=== PATIENT | female | born 1980 | race African-American/Black ===

== ENCOUNTER 2018-10-09 15:44 | Observation (INO) | payer OTHER ==
[~2018-10-09] VITALS: Ht 157.5 cm; Wt 91.6 kg
--- OUTSIDE RECORDS SUMMARY | 2018-10-09 15:47 | XMS REPORT ---
Author Author [facility] Address Unknown Phone Unavailable Care Team Providers Care Taffy Puller Name Role Phone Unavailable Unavailable Payers Payer Name Policy Type Policy Number Effective Date Expiration Date Problems This patient has no known problems. Allergies, Adverse Reactions, Alerts Allergy Name Allergy Type Status Severity Reaction(s) Onset Date Inactive Date Treating Clinician Comments codeine DA Active PR 2018-08-28 00:00:00 codeine DA Active U 2018-07-10 00:00:00 piperacillin DA Active MO 2018-07-10 00:00:00 codeine DA Active U 2018-06-26 00:00:00 piperacillin DA Active MO 2018-06-26 00:00:00 codeine DA Active U 2018-05-26 00:00:00 piperacillin DA Active MO 2018-05-26 00:00:00 codeine DA Active U 2018-05-14 00:00:00 piperacillin DA Active MO 2018-05-14 00:00:00 codeine DA Active U 2017-11-01 00:00:00 tazobactam DA Active MO 2017-11-01 00:00:00 piperacillin DA Active MO 2017-11-01 00:00:00 codeine DA Active U 2017-06-13 00:00:00 tazobactam DA Active MO 2017-06-13 00:00:00 piperacillin DA Active MO 2017-06-13 00:00:00 Medications This patient has no known medications. Results Test Description Test Time Test Comments Text Results Atomic Results Result Comments - CT HEAD/BRAIN W/O CONT 2018-08-31 12:45:00 Name: MELVA TOUSSAINT [facility] : 1980 Age/S: 37 / F [address] Unit #: [id number] Loc: [place] [address] Phys: Alan Curiel MD Acct: [id number] Dis Date: Status: REG ER PHONE #: [phone] Exam Date: 08/31/2018 1215 FAX #: [phone] Reason: headache EXAMS: CPT CODE: [id number] CT HEAD/BRAIN W/O CONT 54707 HISTORY: headache TECHNIQUE: Noncontrast 2.[address] of the head. Examination acquired within 24 hours of arrival. Automated exposure control for dose reduction. COMPARISON: Noncontrast CT brain June 22, 2016 FINDINGS: No acute hemorrhage. No intracranial mass, mass effect, or midline shift. No CT evidence of acute infarct. Maria-white matter differentiation is preserved. No hydrocephalus. No extra-axial fluid collection. Visualized paranasal sinuses are clear. Mastoid air cells and middle ear cavities are clear. Orbital contents are unremarkable. Calvarium and skull base are intact. IMPRESSION: Negative CT head. at 1245 Reported and signed by: Hadley amador MD CC: Paddy San MD; Alan Curiel MD Technologist:Sydney Baxter RT(R),CT CTDI: DLP: Trnscb Date/Time: 08/31/2018 (0071) [email or web address] Orig Print D/T: S: 08/31/2018 (4782) PAGE 1 Signed Report BASIC METABOLIC PANEL 2018-08-31 11:58:00 SODIUM (test code=NA) 139 mmol/L 136-145 POTASSIUM (test code=K) 3.7 mmol/L 3.5-5.1 CHLORIDE (test code=CL) 107.0 mmol/L 98-107 CARBON DIOXIDE (test code=CO2) 27.0 mmol/L 21-32 ANION GAP (test code=GAP) 8.7 10-20 GLUCOSE (test code=GLU) 92 mg/dL 74-106 BLOOD UREA NITROGEN (test code=BUN) 8 mg/dL 7-18 GLOMERULAR FILTRATION RATE (test code=GFR) > 60 mL/min >=60 Estimated GFR by using Modified MDRD formula.Chronic kidney disease is defined as either kidney damageor GFR <60 mL/min/1.73 m2 for >3 months. CREATININE (test code=CREAT) 0.70 mg/dL 0.55-1.02 Note change in reference range due to change in reagent. BUN/CREATININE RATIO (test code=BUN/CREA) 11.4 10-20 CALCIUM (test code=CA) 8.7 mg/dL 8.5-10.1 HCG SERUM [id number] 11:58:00* Test Item Value Reference Range Comments HCG SERUM QUAL (test code=HCGQL) NEGATIVE NEGATIVE This HCGQL test is NOT applicable for MALE patients.Check with nurse about probable order error.If Tumor Marker Test needed, nurse should order test "HCGTU"(Test #550.21369) [id number] 11:58:00* Test Item Value Reference Range Comments TROPONIN-I (test code=TROPI) <0.015 ng/mL 0-0.045 - XR CHEST 1 [id number] 11:56:00 FAX: Paddy Persaud MD [phone] [place]: St: REG FAX: Alan Curiel MD Name: MELVA TOUSSAINT [facility] : 1980 Age/S: 37/F [address] Unit #: [id number] Loc: [facility] [facility] [place] [address] Phys: Alan Curiel MD Acct: [id number] Dis Date: Status: REG ER PHONE #: [phone] Exam Date: 08/31/2018 1118 FAX #: [phone] Reason: CHEST PAIN EXAMS: CPT CODE: [id number] XR CHEST 1 V 73323 REASON FOR EXAM: CHEST PAIN Exam Order Date: 08/31/2018 10:32 AM Ordering MBryn: Alan Curiel MD PROCEDURE: - XR CHEST 1 V COMPARISON: AP chest x-ray August 28, 2018. FINDINGS: The lungs are clear. There is no pleural effusion or pneumothorax. Pulmonary vascularity is within normal limits. Cardiomediastinal silhouette is normal in size for technique. The mediastinal contours are within normal limits. Musculoskeletal structures are within normal limits. The visualized upper abdomen is within normal limits. IMPRESSION: No acute cardiopulm onary process. at 1156 Reported and signed by: Hadley Velasquez MD CC: Paddy San MD; Alan Curiel MD Technologist: Rey Ramírez RT(R) Trnscrd Date/Time/By: (5926) : By: [email or web address] Orig Print D/T: S: 08/31/2018 (4869) PAGE 1 Signed Report BASIC METABOLIC [id number] 11:49:00* Test Item Value Reference Range Comments SODIUM (test code=NA) 139 mmol/L 136-145 POTASSIUM (test code=K) 3.7 mmol/L 3.5-5.1 CHLORIDE (test code=CL) 107.0 mmol/L 98-107 CARBON DIOXIDE (test code=CO2) 27.0 mmol/L 21-32 ANION GAP (test code=GAP) 8.7 10-20 GLUCOSE (test code=GLU) 92 mg/dL 74-106 BLOOD UREA NITROGEN (test code=BUN) 8 mg/dL 7-18 GLOMERULAR FILTRATION RATE (test code=GFR) > 60 mL/min >=60 Estimated GFR by using Modified MDRD formula.Chronic kidney disease is defined as either kidney damageor GFR <60 mL/min/1.73 m2 for >3 months. CREATININE (test code=CREAT) 0.70 mg/dL 0.55-1.02 Note change in reference range due to change in reagent. BUN/CREATININE RATIO (test code=BUN/CREA) 11.4 10-20 CALCIUM (test code=CA) 8.7 mg/dL 8.5-10.1 HCG SERUM [id number] 11:49:00* Test Item Value Reference Range Comments HCG SERUM QUAL (test code=HCGQL) NEGATIVE [id number] 11:49:00* Test Item Value Reference Range Comments TROPONIN-I (test code=TROPI) <0.015 ng/mL 0-0.045 BASIC METABOLIC [id number] 11:37:00* Test Item Value Reference Range Comments SODIUM (test code=NA) 139 mmol/L 136-145 POTASSIUM (test code=K) 3.7 mmol/L 3.5-5.1 CHLORIDE (test code=CL) 107.0 mmol/L 98-107 CARBON DIOXIDE (test code=CO2) mmol/L 21-32 ANION GAP (test code=GAP) 10-20 GLUCOSE (test code=GLU) mg/dL 74-106 BLOOD UREA NITROGEN (test code=BUN) mg/dL 7-18 GLOMERULAR FILTRATION RATE (test code=GFR) mL/min >=60 CREATININE (test code=CREAT) mg/dL 0.55-1.02 BUN/CREATININE RATIO (test code=BUN/CREA) 10-20 CALCIUM (test code=CA) mg/dL 8.5-10.1 HCG SERUM [id number] 11:37:00* Test Item Value Reference Range Comments HCG SERUM QUAL (test code=HCGQL) NEGATIVE [id number] 11:37:00* Test Item Value Reference Range Comments TROPONIN-I (test code=TROPI) ng/mL 0-0.045 TROPONIN I [id number] 11:33:00* Test Item Value Reference Range Comments TROPONIN I RAPID (test code=TROPIRAP) 0.00 ng/mL <0.08 Please Note New Reference Range 0.00-0.079 ng/mL - Negative>or=0.08 ng/mL - Positive The use of serial sampling and testing protocol is arecommended practice.An elevated troponin level alone is often not sufficient fordiagnosis of myocardial infarction. Troponin results obtained by different assays may vary.Evaluation of the extent of myocardial damage based onincrease of troponin would be valid only if similarmethodology is used. CBC W/O [id number] 11:26:00* Test Item Value Reference Range Comments WHITE BLOOD CELL (test code=WBC) 5.0 K/mm3 4.5-12.5 RED BLOOD CELL (test code=RBC) 3.94 mill/mm3 3.7-5.2 HEMOGLOBIN (test code=HGB) 11.6 gram/dL 11.5-15.5 HEMATOCRIT (test code=HCT) 37.3 % 36.0-46.0 MEAN CELL VOLUME (test code=MCV) 94.7 fL 80-98 MEAN CELL HGB (test code=MCH) 29.4 picogram 27.0-33.0 MEAN CELL HGB CONCETRATION (test code=MCHC) 31.1 gram/dL 33.0-36.0 RED CELL DISTRIBUTION WIDTH (test code=RDW) 12.2 % 11.6-16.2 PLATELET COUNT (test code=PLT) 260 K/mm3 150-450 MEAN PLATELET VOLUME (test code=MPV) 9.3 fL 6.7-11.0 CBC W/O [id number] 11:25:00* Test Item Value Reference Range Comments WHITE BLOOD CELL (test code=WBC) K/mm3 4.5-12.5 RED BLOOD CELL (test code=RBC) mill/mm3 3.7-5.2 HEMOGLOBIN (test code=HGB) 11.6 gram/dL 11.5-15.5 HEMATOCRIT (test code=HCT) 37.3 % 36.0-46.0 MEAN CELL VOLUME (test code=MCV) fL 80-98 MEAN CELL HGB (test code=MCH) picogram 27.0-33.0 MEAN CELL HGB CONCETRATION (test code=MCHC) gram/dL 33.0-36.0 RED CELL DISTRIBUTION WIDTH (test code=RDW) % 11.6-16.2 PLATELET COUNT (test code=PLT) K/mm3 150-450 MEAN PLATELET VOLUME (test code=MPV) fL 6.7-11.0 VITAMIN [id number] 15:17:00* Test Item Value Reference Range Comments VITAMIN B12 (test code=VITB12) 216 pg/mL 193-986 FOLIC [id number] 15:17:00* Test Item Value Reference Range Comments FOLIC ACID (test code=FOL) 12.2 ng/mL 3.10-17.50 THYROID PROFILE [id number] 15:15:00* Test Item Value Reference Range Comments T3 UPTAKE (test code=T3UP) 34.0 % 30.0-40.0 T4 (THYROXINE) (test code=T4) 6.1 ug/dL 4.5-13.9 T7 (FREE THYROXINE INDEX) (test code=T7) 2.07 FTI 1.3-5.1 THYROID STIMULATING HORMONE (test code=TSH) 1.770 uIU/mL 0.36-3.74 TSH REFERENCE RANGES: EUTHYROID: 0.35 - 4.3 mIU/mL HYPO : > 5.5 mIU/mL HYPER : < 0.35 mIU/mL [id number] 11:35:00* Test Item Value Reference Range Comments TROPONIN-I (test code=TROPI) <0.015 ng/mL 0-0.045 COMMENTS TO CABLE PLACER: COLLECT 3 HOURS AFTER PREVIOUS SAMPLELIPID PROFILE (CORONARY RISK)2018-08-28 11:26:00* Test Item Value Reference Range Comments TRIGLYCERIDES (test code=TRIG) 75 mg/dL 20-150 CHOLESTEROL (test code=CHOL) 183 mg/dL 0-200 CHOLESTEROL/HDL RATIO (test code=CHOLHDL) 3.0 RATIO 0-4.9 RISK ASSOCIATED WITH CHOL/HDL RATIOS: Risk Male Female1/2 AVERAGE 3.43 3.27AVERAGE 4.97 4.442X AVERAGE 9.55 7.053X AVERAGE 23.39 11.04 REFERENCE VALUE IS RELATED TO RISK LEVELS ASRECOMMENDED BY THE MADDY. HEART, LUNG, AND BLOOD INST. HDL CHOLESTEROL (test code=HDL) 53 mg/dL 40-60 LIPOPROTEIN LDL (test code=LDL) 115 mg/dL 100-129 RN PERSONNEL, CONTACT PHYSICIAN IMMEDIATELY IF THIS IS A STROKE, AMI OR CAROTID STENOSIS PATIENT WHEN THE LDL >100 (1ST OCCURENCE, THIS ADMISSION) Reference Interval: mg/dL mmol/L Optimal <100 <2.6Near/above optimal 100-129 2.6- 3.3Borderline High 130-159 3.4-4.1High 160-189 4.1-4.9Very High >=190 >=4.9=========This LDL result is a direct measurement.========= DRUGS OF ABUSE SCREEN [id number] 10:40:00* Test Item Value Reference Range Comments UA PH DIPSTICK (test code=ZACH) 5.0 5.0-8.0 URN COCAINE (test code=COCAURN) NEGATIVE <300 ng/mL URN CANNABINOIDS (test code=CANNABURN) NEGATIVE <50 ng/mL URN AMPHETAMINE (test code=AMPHETURN) NEGATIVE <1000 ng/mL URN BARBITURATE (test code=BARBITURN) NEGATIVE <200 ng/mL URN BENZODIAZEPINE (test code=BENZOURN) NEGATIVE <200 ng/mL URN OPIATES (test code=OPIATURN) POSITIVE <300 ng/mL This test provides only a preliminary test result. A morespecific alternate chemical method must be used in order toobtain a confirmed analytical result. Gas chromatography/mass spectrometry (GC/MS) is thepreferred confirmatory method. Other chemical confirmationmethods are available. Clinical consideration and professional judgment should be applied to any drug of abusetest result, particularly when preliminary positive resultsare used.Unconfirmed screening results must not be used fornon-medical purposes (e.g., employment testing, legaltesting). URN PHENCYCLIDINE (PCP) (test code=PHENCURN) NEGATIVE <25 ng/mL URN METHADONE (test code=METHAURN) NEGATIVE <300 ng/mL [id number] 09:26:00* Test Item Value Reference Range Comments TROPONIN-I (test code=TROPI) <0.015 ng/mL 0-0.045 COMMENTS TO CABLE PLACER: COLLECT 3 HOURS AFTER PREVIOUS SAMPLEDRUGS OF ABUSE SCREEN [id number] 09:12:00* Test Item Value Reference Range Comments UA PH DIPSTICK (test code=ZACH) 5.0-8.0 URN COCAINE (test code=COCAURN) NEGATIVE <300 ng/mL URN CANNABINOIDS (test code=CANNABURN) NEGATIVE <50 ng/mL URN AMPHETAMINE (test code=AMPHETURN) NEGATIVE <1000 ng/mL URN BARBITURATE (test code=BARBITURN) NEGATIVE <200 ng/mL URN BENZODIAZEPINE (test code=BENZOURN) NEGATIVE <200 ng/mL URN OPIATES (test code=OPIATURN) POSITIVE <300 ng/mL This test provides only a preliminary test result. A morespecific alternate chemical method must be used in order toobtain a confirmed analytical result. Gas chromatography/mass spectrometry (GC/MS) is thepreferred confirmatory method. Other chemical confirmationmethods are available. Clinical consideration and professional judgment should be applied to any drug of abusetest result, particularly when preliminary positive resultsare used.Unconfirmed screening results must not be used fornon-medical purposes (e.g., employment testing, legaltesting). URN PHENCYCLIDINE (PCP) (test code=PHENCURN) NEGATIVE <25 ng/mL URN METHADONE (test code=METHAURN) NEGATIVE <300 ng/mL - XR CHEST 1 [id number] 04:56:00 FAX: Paddy Persaud MD [phone] [place]: St: [facility] FAX: Whitley Diaz DO Name: MELVA TOUSSAINT [facility] : 1980 Age/S: 37/F [address] [facility] Unit #: [id number] Loc: [place] [address] Phys: Whitley Diaz DO Acct: [id number] Dis Date: Status: REG ER PHONE #: [phone] Exam Date: 08/28/2018 0427 FAX #: [phone] Reason: CHEST PAIN EXAMS: CPT CODE: [id number] XR CHEST 1 V 25586 EXAM: - XR CHEST 1 V HISTORY: Chest pain. COMPARISON: July 10, 2018. FINDINGS: Single AP view of the chest is provided. Heart size and vascularity are within normal limits. The lungs are clear of focal consolidation. No effusion, pneumothorax, or acute osseous abnormality. IMPRESSION: No radiographic evidence of acute cardiopulmonary process. at 0456 Reported and signed by: Jr Lucia MD CC: Paddy Richardson MD; Whitley Diaz DO Technologist: Jennie Cedeño Trnscrd Date/Time/By: 08/28/2018 (0456) : By: [email or web address] Orig Print D/T: S: 08/28/2018 (0459) PAGE 1 Signed Report BASIC METABOLIC [id number] 04:47:00* Test Item Value Reference Range Comments SODIUM (test code=NA) 139 mmol/L 136-145 POTASSIUM (test code=K) 3.5 mmol/L 3.5-5.1 CHLORIDE (test code=CL) 107.5 mmol/L 98-107 CARBON DIOXIDE (test code=CO2) 24.0 mmol/L 21-32 ANION GAP (test code=GAP) 11.0 10-20 GLUCOSE (test code=GLU) 90 mg/dL 74-106 BLOOD UREA NITROGEN (test code=BUN) 9 mg/dL 7-18 GLOMERULAR FILTRATION RATE (test code=GFR) > 60 mL/min >=60 Estimated GFR by using Modified MDRD formula.Chronic kidney disease is defined as either kidney damageor GFR <60 mL/min/1.73 m2 for >3 months. CREATININE (test code=CREAT) 0.64 mg/dL 0.55-1.02 Note change in reference range due to change in reagent. BUN/CREATININE RATIO (test code=BUN/CREA) 14.1 10-20 CALCIUM (test code=CA) 8.4 mg/dL 8.5-10.1 [id number] 04:47:00* Test Item Value Reference Range Comments TROPONIN-I (test code=TROPI) <0.015 ng/mL 0-0.045 CBC W/O [id number] 04:24:00* Test Item Value Reference Range Comments WHITE BLOOD CELL (test code=WBC) 5.8 K/mm3 4.5-12.5 RED BLOOD CELL (test code=RBC) 3.89 mill/mm3 3.7-5.2 HEMOGLOBIN (test code=HGB) 11.4 gram/dL 11.5-15.5 HEMATOCRIT (test code=HCT) 37.0 % 36.0-46.0 MEAN CELL VOLUME (test code=MCV) 95.1 fL 80-98 MEAN CELL HGB (test code=MCH) 29.3 picogram 27.0-33.0 MEAN CELL HGB CONCETRATION (test code=MCHC) 30.8 gram/dL 33.0-36.0 RED CELL DISTRIBUTION WIDTH (test code=RDW) 12.5 % 11.6-16.2 PLATELET COUNT (test code=PLT) 261 K/mm3 150-450 MEAN PLATELET VOLUME (test code=MPV) 9.4 fL 6.7-11.0 CBC W/O [id number] 04:23:00* Test Item Value Reference Range Comments WHITE BLOOD CELL (test code=WBC) K/mm3 4.5-12.5 RED BLOOD CELL (test code=RBC) mill/mm3 3.7-5.2 HEMOGLOBIN (test code=HGB) gram/dL 11.5-15.5 HEMATOCRIT (test code=HCT) 37.0 % 36.0-46.0 MEAN CELL VOLUME (test code=MCV) fL 80-98 MEAN CELL HGB (test code=MCH) picogram 27.0-33.0 MEAN CELL HGB CONCETRATION (test code=MCHC) gram/dL 33.0-36.0 RED CELL DISTRIBUTION WIDTH (test code=RDW) % 11.6-16.2 PLATELET COUNT (test code=PLT) K/mm3 150-450 MEAN PLATELET VOLUME (test code=MPV) fL 6.7-11.0 TROPONIN I [id number] 03:52:00* Test Item Value Reference Range Comments TROPONIN I RAPID (test code=TROPIRAP) 0.00 ng/mL <0.08 Please Note New Reference Range 0.00-0.079 ng/mL - Negative>or=0.08 ng/mL - Positive The use of serial sampling and testing protocol is arecommended practice.An elevated troponin level alone is often not sufficient fordiagnosis of myocardial infarction. Troponin results obtained by different assays may vary.Evaluation of the extent of myocardial damage based onincrease of troponin would be valid only if similarmethodology is used. [id number] 16:23:00* Test Item Value Reference Range Comments D-DIMER (test code=DDIMER) 252.00 ng/mLFEU 0-500 Clinical Cut-off value for D- Dimer is 500 ng/mL FEU. Comment: The [employer] D-Dimer assay is intended for use asan aid in the diagnosis of venous thromboembolism (VTE)[deep vein thrombosis (DVT) or pulmonary embolism (PE)].The measurement of D-Dimer should not be used as an aid inthe diagnosis of VTE, in patient with: -Therapeutic dose anticoagulant therapy for >24 hours -Fibrinolytic therapy within previous 7 days -Trauma or surgery within previous 4 weeks -Disseminated malignancies - Aortic aneurysm -Sepsis, severe infections, pneumonia, severe skin infections -Liver cirrhosis - BASIC METABOLIC [id number] 16:01:00* Test Item Value Reference Range Comments SODIUM (test code=NA) 137 mmol/L 136-145 POTASSIUM (test code=K) 4.0 mmol/L 3.5-5.1 CHLORIDE (test code=CL) 103.0 mmol/L 98-107 CARBON DIOXIDE (test code=CO2) 27.0 mmol/L 21-32 ANION GAP (test code=GAP) 11.0 10-20 GLUCOSE (test code=GLU) 88 mg/dL 74-106 BLOOD UREA NITROGEN (test code=BUN) 11 mg/dL 7-18 GLOMERULAR FILTRATION RATE (test code=GFR) > 60 mL/min >=60 Estimated GFR by using Modified MDRD formula.Chronic kidney disease is defined as either kidney damageor GFR <60 mL/min/1.73 m2 for >3 months. CREATININE (test code=CREAT) 0.80 mg/dL 0.55-1.02 Note change in reference range due to change in reagent. BUN/CREATININE RATIO (test code=BUN/CREA) 13.8 10-20 CALCIUM (test code=CA) 9.1 mg/dL 8.5-10.1 HCG SERUM [id number] 16:01:00* Test Item Value Reference Range Comments HCG SERUM QUAL (test code=HCGQL) NEGATIVE NEGATIVE This HCGQL test is NOT applicable for MALE patients.Check with nurse about probable order error.If Tumor Marker Test needed, nurse should order test "HCGTU"(Test #550.80929) [id number] 16:01:00* Test Item Value Reference Range Comments TROPONIN-I (test code=TROPI) <0.015 ng/mL 0-0.045 [id number] 15:48:00* Test Item Value Reference Range Comments MAGNESIUM (test code=MAG) 2.1 mg/dL 1.8-2.4 BASIC METABOLIC [id number] 15:39:00* Test Item Value Reference Range Comments SODIUM (test code=NA) 137 mmol/L 136-145 POTASSIUM (test code=K) 4.0 mmol/L 3.5-5.1 CHLORIDE (test code=CL) 103.0 mmol/L 98-107 CARBON DIOXIDE (test code=CO2) mmol/L 21-32 ANION GAP (test code=GAP) 10-20 GLUCOSE (test code=GLU) mg/dL 74-106 BLOOD UREA NITROGEN (test code=BUN) mg/dL 7-18 GLOMERULAR FILTRATION RATE (test code=GFR) mL/min >=60 CREATININE (test code=CREAT) mg/dL 0.55-1.02 BUN/CREATININE RATIO (test code=BUN/CREA) 10-20 CALCIUM (test code=CA) mg/dL 8.5-10.1 HCG SERUM [id number] 15:39:00* Test Item Value Reference Range Comments HCG SERUM QUAL (test code=HCGQL) NEGATIVE NEGATIVE This HCGQL test is NOT applicable for MALE patients.Check with nurse about probable order error.If Tumor Marker Test needed, nurse should order test "HCGTU"(Test #550.42592) [id number] 15:39:00* Test Item Value Reference Range Comments TROPONIN-I (test code=TROPI) ng/mL 0-0.045 BASIC METABOLIC [id number] 15:38:00* Test Item Value Reference Range Comments SODIUM (test code=NA) mmol/L 136-145 POTASSIUM (test code=K) mmol/L 3.5-5.1 CHLORIDE (test code=CL) mmol/L 98-107 CARBON DIOXIDE (test code=CO2) mmol/L 21-32 ANION GAP (test code=GAP) 10-20 GLUCOSE (test code=GLU) mg/dL 74-106 BLOOD UREA NITROGEN (test code=BUN) mg/dL 7-18 GLOMERULAR FILTRATION RATE (test code=GFR) mL/min >=60 CREATININE (test code=CREAT) mg/dL 0.55-1.02 BUN/CREATININE RATIO (test code=BUN/CREA) 10-20 CALCIUM (test code=CA) mg/dL 8.5-10.1 HCG SERUM [id number] 15:38:00* Test Item Value Reference Range Comments HCG SERUM QUAL (test code=HCGQL) NEGATIVE NEGATIVE This HCGQL test is NOT applicable for MALE patients.Check with nurse about probable order error.If Tumor Marker Test needed, nurse should order test "HCGTU"(Test #550.89670) [id number] 15:38:00* Test Item Value Reference Range Comments TROPONIN-I (test code=TROPI) ng/mL 0-0.045 CBC W/O [id number] 15:08:00* Test Item Value Reference Range Comments WHITE BLOOD CELL (test code=WBC) 7.6 K/mm3 4.5-12.5 RED BLOOD CELL (test code=RBC) 4.56 mill/mm3 3.7-5.2 HEMOGLOBIN (test code=HGB) 13.2 gram/dL 11.5-15.5 HEMATOCRIT (test code=HCT) 42.8 % 36.0-46.0 MEAN CELL VOLUME (test code=MCV) 93.9 fL 80-98 MEAN CELL HGB (test code=MCH) 28.9 picogram 27.0-33.0 MEAN CELL HGB CONCETRATION (test code=MCHC) 30.8 gram/dL 33.0-36.0 RED CELL DISTRIBUTION WIDTH (test code=RDW) 13.1 % 11.6-16.2 PLATELET COUNT (test code=PLT) 327 K/mm3 150-450 MEAN PLATELET VOLUME (test code=MPV) 9.0 fL 6.7-11.0 - XR CHEST 1 [id number] 14:42:00 FAX: Paddy Persaud MD [phone] [place]: St: [facility] FAX: ALAN CURIEL MD Name: MELVA TOUSSAINT [facility] : 1980 Age/S: 37/F [address] [facility] Unit #: [id number] Loc: [place] [address] Phys: ALAN CURIEL MD Acct: [id number] Dis Date: Status: REG ER PHONE #: [phone] Exam Date: 07/10/2018 1431 FAX #: [phone] Reason: CHEST PAIN EXAMS: CPT CODE: [id number] XR CHEST 1 V [id number] TECHNIQUE - XR CHEST 1 V . COMPARISON: Chest x-ray 06/26/2018 HISTORY: 37 years Female CHEST PAIN FINDINGS: Lungs: Question 5 mm nodular density left upper lobe. Not well-seen on the old study of 06/26/2018. Lungs are normal in volume. Mediastinum and jose: No enlargement or other mass. Cardiovascular structures: No cardiomegaly. No abnormalities in vascular structures. Pleura/CP angles: Clear. No pneumothorax. Bones: No osseous abnormalities. Soft tissues: No abnormalities. Tubes and lines: None. Other: None. IMPRESSION: Question 5 mm nodular density left upper lobe. Not well-seen on the old study of 06/26/2018. El ectronically Signed by Tai Dey M.D. on 07/10/2018 at 1442 Reported and signed by: Tai Dey M.D. CC: Paddy San MD; ALAN CURIEL MD Technologist: Yisel Larsen RT(R); STUDENT TECHNO LOGIST Trnscrd Date/Time/By: 07/10/2018 (8271) : By: Ruddy Orig Print D/T: S: 07/10/2018 (5730) PAGE 1 Signed Report [id number] 18:54:00* Test Item Value Reference Range Comments D-DIMER (test code=DDIMER) 185.00 ng/mLFEU 0-500 Clinical Cut-off value for D- Dimer is 500 ng/mL FEU. Comment: The [employer] D-Dimer assay is intended for use asan aid in the diagnosis of venous thromboembolism (VTE)[deep vein thrombosis (DVT) or pulmonary embolism (PE)].The measurement of D-Dimer should not be used as an aid inthe diagnosis of VTE, in patient with: -Therapeutic dose anticoagulant therapy for >24 hours -Fibrinolytic therapy within previous 7 days -Trauma or surgery within previous 4 weeks -Disseminated malignancies - Aortic aneurysm -Sepsis, severe infections, pneumonia, severe skin infections -Liver cirrhosis - - XR CHEST 1 [id number] 18:53:00 FAX: Chance Rodríguez MD [phone] [place]: [facility]: [facility] FAX: Paddy Persaud MD [phone] Name: MELVA TOUSSAINT [facility] : 1980 Age/S: 37/F [place] Hernandez Unit #: [id number] Loc: [place] [address] Phys: Chance Rodríguez MD Acct: [id number] Dis Date: Status: REG ER PHONE #: [phone] Exam Date: 06/26/2018 1850 FAX #: [phone] Reason: CHEST PAIN EXAMS: CPT CODE: [id number] XR CHEST 1 V 21204 REASON FOR EXAM: CHEST PAIN EXAM ORDER DATE: 06/26/2018 5:48 PM Ordering M.Kelsey: Chance Rodríguez MD PROCEDURE: - XR CHEST 1 V COMPARISON: 06/10/2018 FINDINGS: Portable AP frontal view of the chest obtained at 6:50 PM shows clear lungs without evidence of consolidation. There is no evidence of effusion. The heart size is within normal limits. Pulmonary vasculatures are unremarkable. IMPRESSION: No active disease. at 1853 Reported and signed by: Bradley Bacon M.D. CC: Chance Rodríguez MD; Paddy San MD Technologist: EVERETT WYMAN; Darius Burks, RT(R Trnscrd Date/Time/By: 06/26/2018 (185) : By: [email or web address] Orig Print D/T: S: 06/26/2018 (1855) PAGE 1 Signed Report BASIC METABOLIC [id number] 18:47:00* Test Item Value Reference Range Comments SODIUM (test code=NA) 139 mmol/L 136-145 POTASSIUM (test code=K) 3.9 mmol/L 3.5-5.1 CHLORIDE (test code=CL) 103.0 mmol/L 98-107 CARBON DIOXIDE (test code=CO2) 27.0 mmol/L 21-32 ANION GAP (test code=GAP) 12.9 10-20 GLUCOSE (test code=GLU) 83 mg/dL 74-106 BLOOD UREA NITROGEN (test code=BUN) 8 mg/dL 7-18 GLOMERULAR FILTRATION RATE (test code=GFR) > 60 mL/min >=60 Estimated GFR by using Modified MDRD formula.Chronic kidney disease is defined as either kidney damageor GFR <60 mL/min/1.73 m2 for >3 months. CREATININE (test code=CREAT) 0.70 mg/dL 0.55-1.02 Note change in reference range due to change in reagent. BUN/CREATININE RATIO (test code=BUN/CREA) 11.4 10-20 CALCIUM (test code=CA) 9.2 mg/dL 8.5-10.1 HCG SERUM [id number] 18:47:00* Test Item Value Reference Range Comments HCG SERUM QUAL (test code=HCGQL) NEGATIVE NEGATIVE This HCGQL test is NOT applicable for MALE patients.Check with nurse about probable order error.If Tumor Marker Test needed, nurse should order test "HCGTU"(Test #550.89828) [id number] 18:47:00* Test Item Value Reference Range Comments TROPONIN-I (test code=TROPI) <0.015 ng/mL 0-0.045 BASIC METABOLIC [id number] 18:44:00* Test Item Value Reference Range Comments SODIUM (test code=NA) 139 mmol/L 136-145 POTASSIUM (test code=K) 3.9 mmol/L 3.5-5.1 CHLORIDE (test code=CL) 103.0 mmol/L 98-107 CARBON DIOXIDE (test code=CO2) 27.0 mmol/L 21-32 ANION GAP (test code=GAP) 12.9 10-20 GLUCOSE (test code=GLU) 83 mg/dL 74-106 BLOOD UREA NITROGEN (test code=BUN) 8 mg/dL 7-18 GLOMERULAR FILTRATION RATE (test code=GFR) > 60 mL/min >=60 Estimated GFR by using Modified MDRD formula.Chronic kidney disease is defined as either kidney damageor GFR <60 mL/min/1.73 m2 for >3 months. CREATININE (test code=CREAT) 0.70 mg/dL 0.55-1.02 Note change in reference range due to change in reagent. BUN/CREATININE RATIO (test code=BUN/CREA) 11.4 10-20 CALCIUM (test code=CA) 9.2 mg/dL 8.5-10.1 HCG SERUM [id number] 18:44:00* Test Item Value Reference Range Comments HCG SERUM QUAL (test code=HCGQL) NEGATIVE [id number] 18:44:00* Test Item Value Reference Range Comments TROPONIN-I (test code=TROPI) <0.015 ng/mL 0-0.045 BASIC METABOLIC [id number] 18:26:00* Test Item Value Reference Range Comments SODIUM (test code=NA) 139 mmol/L 136-145 POTASSIUM (test code=K) 3.9 mmol/L 3.5-5.1 CHLORIDE (test code=CL) 103.0 mmol/L 98-107 CARBON DIOXIDE (test code=CO2) mmol/L 21-32 ANION GAP (test code=GAP) 10-20 GLUCOSE (test code=GLU) mg/dL 74-106 BLOOD UREA NITROGEN (test code=BUN) mg/dL 7-18 GLOMERULAR FILTRATION RATE (test code=GFR) mL/min >=60 CREATININE (test code=CREAT) mg/dL 0.55-1.02 BUN/CREATININE RATIO (test code=BUN/CREA) 10-20 CALCIUM (test code=CA) 9.2 mg/dL 8.5-10.1 HCG SERUM [id number] 18:26:00* Test Item Value Reference Range Comments HCG SERUM QUAL (test code=HCGQL) NEGATIVE [id number] 18:26:00* Test Item Value Reference Range Comments TROPONIN-I (test code=TROPI) ng/mL 0-0.045 CBC W/O [id number] 18:15:00* Test Item Value Reference Range Comments WHITE BLOOD CELL (test code=WBC) K/mm3 4.5-12.5 RED BLOOD CELL (test code=RBC) mill/mm3 3.7-5.2 HEMOGLOBIN (test code=HGB) 12.1 gram/dL 11.5-15.5 HEMATOCRIT (test code=HCT) 39.3 % 36.0-46.0 MEAN CELL VOLUME (test code=MCV) fL 80-98 MEAN CELL HGB (test code=MCH) picogram 27.0-33.0 MEAN CELL HGB CONCETRATION (test code=MCHC) gram/dL 33.0-36.0 RED CELL DISTRIBUTION WIDTH (test code=RDW) % 11.6-16.2 PLATELET COUNT (test code=PLT) K/mm3 150-450 MEAN PLATELET VOLUME (test code=MPV) fL 6.7-11.0 CBC W/O [id number] 18:15:00* Test Item Value Reference Range Comments WHITE BLOOD CELL (test code=WBC) 7.3 K/mm3 4.5-12.5 RED BLOOD CELL (test code=RBC) 4.21 mill/mm3 3.7-5.2 HEMOGLOBIN (test code=HGB) 12.1 gram/dL 11.5-15.5 HEMATOCRIT (test code=HCT) 39.3 % 36.0-46.0 MEAN CELL VOLUME (test code=MCV) 93.3 fL 80-98 MEAN CELL HGB (test code=MCH) 28.7 picogram 27.0-33.0 MEAN CELL HGB CONCETRATION (test code=MCHC) 30.8 gram/dL 33.0-36.0 RED CELL DISTRIBUTION WIDTH (test code=RDW) 12.6 % 11.6-16.2 PLATELET COUNT (test code=PLT) 270 K/mm3 150-450 MEAN PLATELET VOLUME (test code=MPV) 8.9 fL 6.7-11.0 [id number] 01:24:00* Test Item Value Reference Range Comments TROPONIN-I (test code=TROPI) <0.015 ng/mL 0-0.045 [id number] 23:22:00* Test Item Value Reference Range Comments D-DIMER (test code=DDIMER) 336.00 ng/mLFEU 0-500 Clinical Cut-off value for D- Dimer is 500 ng/mL FEU. Comment: The [employer] D-Dimer assay is intended for use asan aid in the diagnosis of venous thromboembolism (VTE)[deep vein thrombosis (DVT) or pulmonary embolism (PE)].The measurement of D-Dimer should not be used as an aid inthe diagnosis of VTE, in patient with: -Therapeutic dose anticoagulant therapy for >24 hours -Fibrinolytic therapy within previous 7 days -Trauma or surgery within previous 4 weeks -Disseminated malignancies - Aortic aneurysm -Sepsis, severe infections, pneumonia, severe skin infections -Liver cirrhosis - - XR CHEST 1 [id number] 22:52:00 FAX: Paddy Persaud MD [phone] [place]: St: REG FAX: ALAN CURIEL MD Name: MELVA TOUSSAINT [facility] : 1980 Age/S: 37/F [address] [facility] Unit #: [id number] Loc: [place] [address] Phys: ALAN CURIEL MD Acct: [id number] Dis Date: Status: REG ER PHONE #: [phone] Exam Date: 06/10/2018 2246 FAX #: [phone] Reason: CHEST PAIN EXAMS: CPT CODE: [id number] XR CHEST 1 V 08642 REASON FOR EXAM: CHEST PAIN EXAM ORDER DATE: 06/10/2018 9:54 PM Ordering MBryn: ALAN CURIEL MD PROCEDURE: - XR CHEST 1 V COMPARISON: 05/26/2018 FINDINGS: Portable AP frontal view of the chest obtained at 10:43 PM shows clear lungs without evidence of consolidation. There is no evidence of effusion. The heart size is within normal limits. Pulmonary vasculatures are unremarkable. IMPRESSION: No active disease. at 8313 Reported and signed by: Bradley Bacon M.D. CC: Paddy San MD; ALAN CURIEL MD Technologist: Jennie Cedeño Trnscrd Date/Time/By: 06/10/2018 (3530) : By: Cici Orig Print D/T: S: 06/10/2018 (8357) PAGE 1 Signed Report BASIC METABOLIC [id number] 22:41:00* Test Item Value Reference Range Comments SODIUM (test code=NA) 136 mmol/L 136-145 POTASSIUM (test code=K) 3.7 mmol/L 3.5-5.1 CHLORIDE (test code=CL) 103.0 mmol/L 98-107 CARBON DIOXIDE (test code=CO2) 26.0 mmol/L 21-32 ANION GAP (test code=GAP) 10.7 10-20 GLUCOSE (test code=GLU) 94 mg/dL 74-106 BLOOD UREA NITROGEN (test code=BUN) 8 mg/dL 7-18 GLOMERULAR FILTRATION RATE (test code=GFR) > 60 mL/min >=60 Estimated GFR by using Modified MDRD formula.Chronic kidney disease is defined as either kidney damageor GFR <60 mL/min/1.73 m2 for >3 months. CREATININE (test code=CREAT) 0.60 mg/dL 0.55-1.02 Note change in reference range due to change in reagent. BUN/CREATININE RATIO (test code=BUN/CREA) 13.3 10-20 CALCIUM (test code=CA) 9.0 mg/dL 8.5-10.1 HCG SERUM [id number] 22:41:00* Test Item Value Reference Range Comments HCG SERUM QUAL (test code=HCGQL) NEGATIVE NEGATIVE This HCGQL test is NOT applicable for MALE patients.Check with nurse about probable order error.If Tumor Marker Test needed, nurse should order test "HCGTU"(Test #550.01720) [id number] 22:41:00* Test Item Value Reference Range Comments TROPONIN-I (test code=TROPI) <0.015 ng/mL 0-0.045 BASIC METABOLIC [id number] 22:34:00* Test Item Value Reference Range Comments SODIUM (test code=NA) 136 mmol/L 136-145 POTASSIUM (test code=K) 3.7 mmol/L 3.5-5.1 CHLORIDE (test code=CL) 103.0 mmol/L 98-107 CARBON DIOXIDE (test code=CO2) mmol/L 21-32 ANION GAP (test code=GAP) 10-20 GLUCOSE (test code=GLU) mg/dL 74-106 BLOOD UREA NITROGEN (test code=BUN) mg/dL 7-18 GLOMERULAR FILTRATION RATE (test code=GFR) mL/min >=60 CREATININE (test code=CREAT) mg/dL 0.55-1.02 BUN/CREATININE RATIO (test code=BUN/CREA) 10-20 CALCIUM (test code=CA) 9.0 mg/dL 8.5-10.1 HCG SERUM [id number] 22:34:00* Test Item Value Reference Range Comments HCG SERUM QUAL (test code=HCGQL) NEGATIVE [id number] 22:34:00* Test Item Value Reference Range Comments TROPONIN-I (test code=TROPI) ng/mL 0-0.045 BASIC METABOLIC [id number] 22:34:00* Test Item Value Reference Range Comments SODIUM (test code=NA) 136 mmol/L 136-145 POTASSIUM (test code=K) 3.7 mmol/L 3.5-5.1 CHLORIDE (test code=CL) 103.0 mmol/L 98-107 CARBON DIOXIDE (test code=CO2) mmol/L 21-32 ANION GAP (test code=GAP) 10-20 GLUCOSE (test code=GLU) mg/dL 74-106 BLOOD UREA NITROGEN (test code=BUN) mg/dL 7-18 GLOMERULAR FILTRATION RATE (test code=GFR) mL/min >=60 CREATININE (test code=CREAT) mg/dL 0.55-1.02 BUN/CREATININE RATIO (test code=BUN/CREA) 10-20 CALCIUM (test code=CA) 9.0 mg/dL 8.5-10.1 HCG SERUM [id number] 22:34:00* Test Item Value Reference Range Comments HCG SERUM QUAL (test code=HCGQL) NEGATIVE NEGATIVE This HCGQL test is NOT applicable for MALE patients.Check with nurse about probable order error.If Tumor Marker Test needed, nurse should order test "HCGTU"(Test #550.42850) [id number] 22:34:00* Test Item Value Reference Range Comments TROPONIN-I (test code=TROPI) ng/mL 0-0.045 CBC W/O [id number] 22:21:00* Test Item Value Reference Range Comments WHITE BLOOD CELL (test code=WBC) 9.5 K/mm3 4.5-12.5 RED BLOOD CELL (test code=RBC) 4.40 mill/mm3 3.7-5.2 HEMOGLOBIN (test code=HGB) 12.2 gram/dL 11.5-15.5 HEMATOCRIT (test code=HCT) 41.0 % 36.0-46.0 MEAN CELL VOLUME (test code=MCV) 93.2 fL 80-98 MEAN CELL HGB (test code=MCH) 27.7 picogram 27.0-33.0 MEAN CELL HGB CONCETRATION (test code=MCHC) 29.8 gram/dL 33.0-36.0 RED CELL DISTRIBUTION WIDTH (test code=RDW) 12.8 % 11.6-16.2 PLATELET COUNT (test code=PLT) 469 K/mm3 150-450 MEAN PLATELET VOLUME (test code=MPV) 9.1 fL 6.7-11.0 CBC W/O [id number] 22:19:00* Test Item Value Reference Range Comments WHITE BLOOD CELL (test code=WBC) K/mm3 4.5-12.5 RED BLOOD CELL (test code=RBC) mill/mm3 3.7-5.2 HEMOGLOBIN (test code=HGB) 12.2 gram/dL 11.5-15.5 HEMATOCRIT (test code=HCT) 41.0 % 36.0-46.0 MEAN CELL VOLUME (test code=MCV) fL 80-98 MEAN CELL HGB (test code=MCH) picogram 27.0-33.0 MEAN CELL HGB CONCETRATION (test code=MCHC) gram/dL 33.0-36.0 RED CELL DISTRIBUTION WIDTH (test code=RDW) % 11.6-16.2 PLATELET COUNT (test code=PLT) K/mm3 150-450 MEAN PLATELET VOLUME (test code=MPV) fL 6.7-11.0 LACTIC [id number] 10:16:00* Test Item Value Reference Range Comments LACTIC ACID (test code=LACT) 0.8 mmol/L 0.4-1.9 URINALYSIS [id number] 09:10:00* Test Item Value Reference Range Comments UA COLOR (test code=COLU) STRAW YELLOW UA APPEARANCE (test code=APPU) CLEAR CLEAR UA GLUCOSE DIPSTICK (test code=DGLUU) NEGATIVE mg/dL NEGATIVE UA BILIRUBIN DIPSTICK (test code=BILU) NEGATIVE mg/dL NEGATIVE UA KETONE DIPSTICK (test code=KETU) NEGATIVE mg/dL NEGATIVE UA SPECIFIC GRAVITY (test code=SGU) 1.011 1.001-1.035 UA BLOOD DIPSTICK (test code=IRVIN) 1+ (Small) mg/dL NEGATIVE UA PH DIPSTICK (test code=ZACH) 7.0 5.0-8.0 UA PROTEIN DIPSTICK (test code=PROU) NEGATIVE mg/dL NEGATIVE UA UROBILINIOGEN DIPSTICK (test code=URO) NEGATIVE mg/dL NEGATIVE UA NITRITE DIPSTICK (test code=JUAN C) POSITIVE NEGATIVE UA LEUKOCYTE ESTERASE W REFLEX (test code=LEUUR) NEGATIVE Tristin/uL NEGATIVE UA WBC (test code=WBCU) 0-5 per HPF 0-5 UA RBC (test code=RBCU) 0-2 #/HPF 0-5 UA EPITHELIAL CELLS (test code=EPIU) FEW per HPF FEW UA BACTERIA (test code=BACU) FEW #/HPF NONE Urine Source? Clean CatchLACTIC [id number] 06:30:00* Test Item Value Reference Range Comments LACTIC ACID (test code=LACT) 2.5 mmol/L 0.4-1.9 Results called to CLARE WONG [id number] by [email or web address] 05/26/18 0627Critical results verified and read back by Nurse? Y PROCALCITONIN (PCT)2018-05-26 06:25:00* Test Item Value Reference Range Comments PROCALCITONIN (PCT) (test code=PROCAL) < 0.05 ng/ml Concentration Interpretation (ng/mL) <0.51 Sepsis is not likely. Local bacterial infection is possible. (LOW RISK for progression to Sepsis) 0.51 - 2.00 Sepsis is possible, but other conditions are known to elevate PCT as well. (MODERATE RISK for progression to Sepsis) > 2.00 Sepsis is likely, unless other causes are known. (HIGH RISK for progression to Severe Sepsis or Septic Shock) 10.00 High likelihood of Severe Sepsis or Septic or higher Shock. *Increased PCT levels may not always be related to systemic bacterial infection.*Low PCT levels do not automatically exclude the presence of bacterial infection.*All results should be interpreted taking into account the patients history. - XR CHEST 1 [id number] 06:22:00 FAX: Pedro Luis Haider DO [place]: St: REG Name: MELVA JARRETT [facility] : [birth year] Age/S: 37/F [address] [facility] Unit #: [id number] Loc: [place] [address] Phys: Pedro Luis Haider DO Acct: [id number] Dis Date: Status: REG ER PHONE #: [phone] Exam Date: 05/26/2018 0611 FAX #: [phone] Reason: CODE SEPSIS EXAMS: CPT CODE: [id number] XR CHEST 1 V 79410 - XR CHEST 1 V, 05/26/2018 5:25 AM Reason For Examination: CODE SEPSIS Comparison: None available Location: R16 Findings LETY NGS: No definite consolidation, although exam findings limited by low krista g volumes. Mild edema is noted PLEURA: No pleural ef fusions CARDIOMEDIASTINAL SILHOUETTE Unremarkable IMPRESSION: Likely mild edema is noted. Exam findings limited by low lung volumes at 0622 Reported and signed by: Emmy Rosen M.D. CC: Pedro Luis Haider DO Technologist: GLORIA SALOMON RT(R) Trnscrd Date/Time/By: 05/26/2018 (06) : By: [email or web address] Orig Print D/T: S: 05/26/2018 (3986) PAGE 1 Signed Report BASIC METABOLIC [id number] 06:20:00* Test Item Value Reference Range Comments SODIUM (test code=NA) 138 mmol/L 136-145 POTASSIUM (test code=K) 4.4 mmol/L 3.5-5.1 CHLORIDE (test code=CL) 105.0 mmol/L 98-107 CARBON DIOXIDE (test code=CO2) 26.0 mmol/L 21-32 ANION GAP (test code=GAP) 11.4 10-20 GLUCOSE (test code=GLU) 106 mg/dL 74-106 BLOOD UREA NITROGEN (test code=BUN) 14 mg/dL 7-18 GLOMERULAR FILTRATION RATE (test code=GFR) > 60 mL/min >=60 Estimated GFR by using Modified MDRD formula.Chronic kidney disease is defined as either kidney damageor GFR <60 mL/min/1.73 m2 for >3 months. CREATININE (test code=CREAT) 0.90 mg/dL 0.55-1.02 Note change in reference range due to change in reagent. BUN/CREATININE RATIO (test code=BUN/CREA) 15.6 10-20 CALCIUM (test code=CA) 9.2 mg/dL 8.5-10.1 HEPATIC FUNCTION [id number] 06:20:00* Test Item Value Reference Range Comments TOTAL PROTEIN (test code=PROT) 8.2 gram/dL 6.4-8.2 ALBUMIN (test code=ALB) 3.9 g/dL 3.4-5.0 GLOBULIN (test code=GLOB) 4.3 gram/dL 2.7-4.2 ALBUMIN/GLOBULIN RATIO (test code=A/G) 0.9 0.75-1.50 BILIRUBIN TOTAL (test code=BILT) 0.20 mg/dL 0.0-1.0 BILIRUBIN DIRECT (test code=BILD) 0.09 mg/dL 0.0-0.20 SGOT/AST (test code=AST) 32 IUnit/L 15-37 SGPT/ALT (test code=ALT) 27 IUnit/L 12-78 ALKALINE PHOSPHATASE TOTAL (test code=ALKP) 77 IUnit/L 45-117 Note change in reference range due to change in reagent. [id number] 06:20:00* Test Item Value Reference Range Comments LIPASE (test code=LIP) 59 U/L 73.0-393.0 HCG SERUM [id number] 06:20:00* Test Item Value Reference Range Comments HCG SERUM QUAL (test code=HCGQL) NEGATIVE NEGATIVE This HCGQL test is NOT applicable for MALE patients.Check with nurse about probable order error.If Tumor Marker Test needed, nurse should order test "HCGTU"(Test #550.62007) [id number] 06:20:00* Test Item Value Reference Range Comments TROPONIN-I (test code=TROPI) <0.015 ng/mL 0-0.045 MONO [id number] 06:17:00* Test Item Value Reference Range Comments MONO SCREEN (test code=MONO) NEGATIVE NEGATIVE BASIC METABOLIC [id number] 06:08:00* Test Item Value Reference Range Comments SODIUM (test code=NA) 138 mmol/L 136-145 POTASSIUM (test code=K) 4.4 mmol/L 3.5-5.1 CHLORIDE (test code=CL) 105.0 mmol/L 98-107 CARBON DIOXIDE (test code=CO2) mmol/L 21-32 ANION GAP (test code=GAP) 10-20 GLUCOSE (test code=GLU) mg/dL 74-106 BLOOD UREA NITROGEN (test code=BUN) mg/dL 7-18 GLOMERULAR FILTRATION RATE (test code=GFR) mL/min >=60 CREATININE (test code=CREAT) mg/dL 0.55-1.02 BUN/CREATININE RATIO (test code=BUN/CREA) 10-20 CALCIUM (test code=CA) mg/dL 8.5-10.1 HEPATIC FUNCTION [id number] 06:08:00* Test Item Value Reference Range Comments TOTAL PROTEIN (test code=PROT) gram/dL 6.4-8.2 ALBUMIN (test code=ALB) g/dL 3.4-5.0 GLOBULIN (test code=GLOB) gram/dL 2.7-4.2 ALBUMIN/GLOBULIN RATIO (test code=A/G) 0.75-1.50 BILIRUBIN TOTAL (test code=BILT) mg/dL 0.0-1.0 BILIRUBIN DIRECT (test code=BILD) mg/dL 0.0-0.20 SGOT/AST (test code=AST) IUnit/L 15-37 SGPT/ALT (test code=ALT) IUnit/L 12-78 ALKALINE PHOSPHATASE TOTAL (test code=ALKP) IUnit/L 45-117 [id number] 06:08:00* Test Item Value Reference Range Comments LIPASE (test code=LIP) U/L 73.0-393.0 HCG SERUM [id number] 06:08:00* Test Item Value Reference Range Comments HCG SERUM QUAL (test code=HCGQL) NEGATIVE NEGATIVE This HCGQL test is NOT applicable for MALE patients.Check with nurse about probable order error.If Tumor Marker Test needed, nurse should order test "HCGTU"(Test #550.53710) [id number] 06:08:00* Test Item Value Reference Range Comments TROPONIN-I (test code=TROPI) ng/mL 0-0.045 BASIC METABOLIC [id number] 06:04:00* Test Item Value Reference Range Comments SODIUM (test code=NA) 138 mmol/L 136-145 POTASSIUM (test code=K) 4.4 mmol/L 3.5-5.1 CHLORIDE (test code=CL) 105.0 mmol/L 98-107 CARBON DIOXIDE (test code=CO2) mmol/L 21-32 ANION GAP (test code=GAP) 10-20 GLUCOSE (test code=GLU) mg/dL 74-106 BLOOD UREA NITROGEN (test code=BUN) mg/dL 7-18 GLOMERULAR FILTRATION RATE (test code=GFR) mL/min >=60 CREATININE (test code=CREAT) mg/dL 0.55-1.02 BUN/CREATININE RATIO (test code=BUN/CREA) 10-20 CALCIUM (test code=CA) mg/dL 8.5-10.1 HEPATIC FUNCTION [id number] 06:04:00* Test Item Value Reference Range Comments TOTAL PROTEIN (test code=PROT) gram/dL 6.4-8.2 ALBUMIN (test code=ALB) g/dL 3.4-5.0 GLOBULIN (test code=GLOB) gram/dL 2.7-4.2 ALBUMIN/GLOBULIN RATIO (test code=A/G) 0.75-1.50 BILIRUBIN TOTAL (test code=BILT) mg/dL 0.0-1.0 BILIRUBIN DIRECT (test code=BILD) mg/dL 0.0-0.20 SGOT/AST (test code=AST) IUnit/L 15-37 SGPT/ALT (test code=ALT) IUnit/L 12-78 ALKALINE PHOSPHATASE TOTAL (test code=ALKP) IUnit/L 45-117 [id number] 06:04:00* Test Item Value Reference Range Comments LIPASE (test code=LIP) U/L 73.0-393.0 HCG SERUM [id number] 06:04:00* Test Item Value Reference Range Comments HCG SERUM QUAL (test code=HCGQL) NEGATIVE [id number] 06:04:00* Test Item Value Reference Range Comments TROPONIN-I (test code=TROPI) ng/mL 0-0.045 CBC W/AUTO [id number] 06:02:00* Test Item Value Reference Range Comments WHITE BLOOD CELL (test code=WBC) 15.4 K/mm3 4.5-12.5 RED BLOOD CELL (test code=RBC) 4.37 mill/mm3 3.7-5.2 HEMOGLOBIN (test code=HGB) 12.5 gram/dL 11.5-15.5 HEMATOCRIT (test code=HCT) 43.1 % 36.0-46.0 MEAN CELL VOLUME (test code=MCV) 98.6 fL 80-98 MEAN CELL HGB (test code=MCH) 28.6 picogram 27.0-33.0 MEAN CELL HGB CONCETRATION (test code=MCHC) 29.0 gram/dL 33.0-36.0 RED CELL DISTRIBUTION WIDTH (test code=RDW) 12.7 % 11.6-16.2 RED CELL DISTRIBUTION WIDTH SD (test code=RDW-SD) 45.6 fL 37.0-51.0 PLATELET COUNT (test code=PLT) 292 K/mm3 150-450 MEAN PLATELET VOLUME (test code=MPV) 9.3 fL 6.7-11.0 NEUTROPHIL % (test code=NT%) 85.7 % 39.0-69.0 IMMATURE GRANULOCYTE % (test code=IG%) 0.9 % 0.0-5.0 LYMPHOCYTE % (test code=LY%) 8.9 % 25.0-55.0 MONOCYTE % (test code=MO%) 3.9 % 0.0-10.0 EOSINOPHIL % (test code=EO%) 0.3 % 0.0-5.0 BASOPHIL % (test code=BA%) 0.3 % 0.0-1.0 NUCLEATED RBC % (test code=NRBC%) 0.0 % 0-0 NEUTROPHIL # (test code=NT#) 13.21 K/mm3 1.8-7.7 IMMATURE GRANULOCYTE # (test code=IG#) 0.14 x10 3/uL 0-0.03 LYMPHOCYTE # (test code=LY#) 1.37 K/mm3 1.0-5.0 MONOCYTE # (test code=MO#) 0.60 K/mm3 0-0.8 EOSINOPHIL # (test code=EO#) 0.05 K/mm3 0.0-0.5 BASOPHIL # (test code=BA#) 0.05 K/mm3 0.0-0.2 NUCLEATED RBC # (test code=NRBC#) 0.00 K/mm3 0.0-0.1 CBC W/AUTO [id number] 05:51:00* Test Item Value Reference Range Comments WHITE BLOOD CELL (test code=WBC) K/mm3 4.5-12.5 RED BLOOD CELL (test code=RBC) mill/mm3 3.7-5.2 HEMOGLOBIN (test code=HGB) 12.5 gram/dL 11.5-15.5 HEMATOCRIT (test code=HCT) 43.1 % 36.0-46.0 MEAN CELL VOLUME (test code=MCV) fL 80-98 MEAN CELL HGB (test code=MCH) picogram 27.0-33.0 MEAN CELL HGB CONCETRATION (test code=MCHC) gram/dL 33.0-36.0 RED CELL DISTRIBUTION WIDTH (test code=RDW) % 11.6-16.2 RED CELL DISTRIBUTION WIDTH SD (test code=RDW-SD) fL 37.0-51.0 PLATELET COUNT (test code=PLT) K/mm3 150-450 MEAN PLATELET VOLUME (test code=MPV) fL 6.7-11.0 NEUTROPHIL % (test code=NT%) % 39.0-69.0 IMMATURE GRANULOCYTE % (test code=IG%) % 0.0-5.0 LYMPHOCYTE % (test code=LY%) % 25.0-55.0 MONOCYTE % (test code=MO%) % 0.0-10.0 EOSINOPHIL % (test code=EO%) % 0.0-5.0 BASOPHIL % (test code=BA%) % 0.0-1.0 NEUTROPHIL # (test code=NT#) K/mm3 1.8-7.7 LYMPHOCYTE # (test code=LY#) K/mm3 1.0-5.0 MONOCYTE # (test code=MO#) K/mm3 0-0.8 EOSINOPHIL # (test code=EO#) K/mm3 0.0-0.5 BASOPHIL # (test code=BA#) K/mm3 0.0-0.2 - XR CHEST 1 [id number] 05:14:00 FAX: Viridiana Hancock NP [place]: St: REG Name: MELVA JARRETT [facility] : [birth year] Age/S: 37/F [address] [facility] Unit #: [id number] Loc: [place] [address] Phys: Viridiana Hancock NP Acct: [id number] Dis Date: Status: REG ER PHONE #: [phone] Exam Date: 05/14/2018 05 FAX #: [phone] Reason: CHEST PAIN EXAMS: CPT CODE: [id number] XR CHEST 1 V [id number] AFTER HOURS SERVICE ON: 05/14/2018 5:14 AM AP Portable Chest Location Code M12 HISTORY: CHEST PAIN FINDINGS: There are no in filtrates. There are no pleural effusions. There is no pneumothorax. Cardi ac silhouette and mediastinum appear within normal limits. IMPRESSION: No active pulmonary findings. at 0514 Reported and signed by: Felix Narvaez M.D. CC: Viridiana Hancock NP Technologist: Jennie Cedeño Trnscrd Date/Time/By: 05/14/2018 (0514) : By: [email or web address] Orig Print D/T: S: 05/14/2018 (0537) PAGE 1 Signed Report BASIC METABOLIC PANEL 2018-05-14 05:03:00* Test Item Value Reference Range Comments SODIUM (test code=NA) 138 mmol/L 136-145 POTASSIUM (test code=K) 3.5 mmol/L 3.5-5.1 CHLORIDE (test code=CL) 105.0 mmol/L 98-107 CARBON DIOXIDE (test code=CO2) 24.0 mmol/L 21-32 ANION GAP (test code=GAP) 12.5 10-20 GLUCOSE (test code=GLU) 90 mg/dL 74-106 BLOOD UREA NITROGEN (test code=BUN) 13 mg/dL 7-18 GLOMERULAR FILTRATION RATE (test code=GFR) > 60 mL/min >=60 Estimated GFR by using Modified MDRD formula.Chronic kidney disease is defined as either kidney damageor GFR <60 mL/min/1.73 m2 for >3 months. CREATININE (test code=CREAT) 0.90 mg/dL 0.55-1.02 Note change in reference range due to change in reagent. BUN/CREATININE RATIO (test code=BUN/CREA) 14.4 10-20 CALCIUM (test code=CA) 8.3 mg/dL 8.5-10.1 [id number] 05:03:00* Test Item Value Reference Range Comments TROPONIN-I (test code=TROPI) <0.015 ng/mL 0-0.045 BASIC METABOLIC [id number] 04:56:00* Test Item Value Reference Range Comments SODIUM (test code=NA) 138 mmol/L 136-145 POTASSIUM (test code=K) 3.5 mmol/L 3.5-5.1 CHLORIDE (test code=CL) 105.0 mmol/L 98-107 CARBON DIOXIDE (test code=CO2) mmol/L 21-32 ANION GAP (test code=GAP) 10-20 GLUCOSE (test code=GLU) mg/dL 74-106 BLOOD UREA NITROGEN (test code=BUN) mg/dL 7-18 GLOMERULAR FILTRATION RATE (test code=GFR) mL/min >=60 CREATININE (test code=CREAT) mg/dL 0.55-1.02 BUN/CREATININE RATIO (test code=BUN/CREA) 10-20 CALCIUM (test code=CA) 8.3 mg/dL 8.5-10.1 [id number] 04:56:00* Test Item Value Reference Range Comments TROPONIN-I (test code=TROPI) ng/mL 0-0.045 HCG SERUM [id number] 04:55:00* Test Item Value Reference Range Comments HCG SERUM QUAL (test code=HCGQL) NEGATIVE NEGATIVE This HCGQL test is NOT applicable for MALE patients.Check with nurse about probable order error.If Tumor Marker Test needed, nurse should order test "HCGTU"(Test #[id number]) BASIC METABOLIC [id number] 04:53:00* Test Item Value Reference Range Comments SODIUM (test code=NA) 138 mmol/L 136-145 POTASSIUM (test code=K) 3.5 mmol/L 3.5-5.1 CHLORIDE (test code=CL) 105.0 mmol/L 98-107 CARBON DIOXIDE (test code=CO2) mmol/L 21-32 ANION GAP (test code=GAP) 10-20 GLUCOSE (test code=GLU) mg/dL 74-106 BLOOD UREA NITROGEN (test code=BUN) mg/dL 7-18 GLOMERULAR FILTRATION RATE (test code=GFR) mL/min >=60 CREATININE (test code=CREAT) mg/dL 0.55-1.02 BUN/CREATININE RATIO (test code=BUN/CREA) 10-20 CALCIUM (test code=CA) mg/dL 8.5-10.1 [id number] 04:53:00* Test Item Value Reference Range Comments TROPONIN-I (test code=TROPI) ng/mL 0-0.045 CBC W/O [id number] 04:48:00* Test Item Value Reference Range Comments WHITE BLOOD CELL (test code=WBC) 6.6 K/mm3 4.5-12.5 RED BLOOD CELL (test code=RBC) 4.07 mill/mm3 3.7-5.2 HEMOGLOBIN (test code=HGB) 11.8 gram/dL 11.5-15.5 HEMATOCRIT (test code=HCT) 39.3 % 36.0-46.0 MEAN CELL VOLUME (test code=MCV) 96.6 fL 80-98 MEAN CELL HGB (test code=MCH) 29.0 picogram 27.0-33.0 MEAN CELL HGB CONCETRATION (test code=MCHC) 30.0 gram/dL 33.0-36.0 RED CELL DISTRIBUTION WIDTH (test code=RDW) 12.9 % 11.6-16.2 PLATELET COUNT (test code=PLT) 295 K/mm3 150-450 MEAN PLATELET VOLUME (test code=MPV) 9.6 fL 6.7-11.0 CBC W/O [id number] 04:43:00* Test Item Value Reference Range Comments WHITE BLOOD CELL (test code=WBC) K/mm3 4.5-12.5 RED BLOOD CELL (test code=RBC) mill/mm3 3.7-5.2 HEMOGLOBIN (test code=HGB) 11.8 gram/dL 11.5-15.5 HEMATOCRIT (test code=HCT) 39.3 % 36.0-46.0 MEAN CELL VOLUME (test code=MCV) fL 80-98 MEAN CELL HGB (test code=MCH) picogram 27.0-33.0 MEAN CELL HGB CONCETRATION (test code=MCHC) gram/dL 33.0-36.0 RED CELL DISTRIBUTION WIDTH (test code=RDW) % 11.6-16.2 PLATELET COUNT (test code=PLT) K/mm3 150-450 MEAN PLATELET VOLUME (test code=MPV) fL 6.7-11.0
--- OUTSIDE RECORDS SUMMARY | 2018-10-09 15:47 | XMS REPORT | Clinical Summary ---
Author Author [facility] Organization [facility] Address Unknown Phone Unavailable Care Team Providers Care Manager Cardiology Name Role Phone Asked, No Pcp PCP Unavailable Allergies Comments Active Allergy Reactions Severity Noted Date Codeine 09/23/2018 Piperacillin-Tazobactam 09/23/2018 Medications Not on file Active Problems Not on file Encounters Care Team Description Date Type Specialty Jessica Ruiz MD Chest pain in adult (Primary Dx) 09/23/2018 Emergency Emergency Medicine 09/23/2018 Travel after 10/08/2017 Social History Date Tobacco Use Types Packs/Day Years Used Quit: 07/29/2018 Former Smoker Smokeless Tobacco: Never Used Drinks/Week oz/Week Comments Alcohol Use Never Alcohol Habits Answer Date Recorded How often do you have a drink containing alcohol? Never 09/23/2018 How many drinks containing alcohol do you have on Not asked a typical day when you are drinking? How often do you have six or more drinks on one Not asked occasion? Sex Assigned at Date Recorded Not on file Industry Job Start Date Occupation Not on file Not on file Not on file Travel End Travel History Travel Start No recent travel history available. Last Filed Vital Signs Reading Time Taken Comments Vital Sign 125/88 09/23/2018 4:39 AM CDT Blood Pressure 88 09/23/2018 4:39 AM CDT Pulse 36.4 C (97.5 F) 09/23/2018 2:22 AM CDT Temperature 16 09/23/2018 4:39 AM CDT Respiratory Rate 99% 09/23/2018 4:39 AM CDT Oxygen Saturation - - Inhaled Oxygen Concentration 87.1 kg (192 lb) 09/23/2018 2:21 AM CDT Weight 157.5 cm (5' 2") 09/23/2018 2:21 AM CDT Height 35.12 09/23/2018 2:21 AM CDT Body Mass Index Plan of Treatment Health Maintenance Due Date Last Done Comments CERVICAL CANCER SCREENING 10/05/2003 INFLUENZA VACCINE 09/19/2018 Procedures Comments Procedure Name Priority Date/Time Associated Diagnosis ECG ED PRELIMINARY Routine 09/23/2018 INTERPRETATION 5:24 AM CDT XR CHEST 2 VW STAT 09/23/2018 2:50 AM CDT ESTIMATED GFR STAT 09/23/2018 2:32 AM CDT HC COMPLETE BLD COUNT STAT 09/23/2018 W/AUTO DIFF 2:32 AM CDT COMPREHENSIVE METABOLIC STAT 09/23/2018 PANEL 2:32 AM CDT TROPONIN Routine 09/23/2018 2:32 AM CDT ECG 12-LEAD STAT 09/23/2018 2:27 AM CDT after 10/08/2017 Results * ECG ED Preliminary Interpretation - Not an Order (09/23/2018 5:24 AM CDT) Narrative Performed At Jessica Ruiz MD 09/23/20184:03 PM ECG ED Preliminary Interpretation - Not an Order Performed by: Jessica Ruiz MD Authorized by: Jessica Ruiz MD ECG reviewed by ED Physician in the absence of a rough rib grader: yes Interpretation: Interpretation: non-specific Rate: ECG rate:101 ECG rate assessment: tachycardic Rhythm: Rhythm: sinus tachycardia Ectopy: Ectopy: none QRS: QRS axis:Normal QRS intervals:Normal Conduction: Conduction: normal ST segments: ST segments:Normal T waves: T waves: normal * XR Chest 2 Vw (09/23/2018 2:50 AM CDT) Specimen Narrative Performed At EXAMINATION: XR CHEST 2 VW [facility] CLINICAL HISTORY: Chest wall pain COMPARISON:06/07/2014. IMPRESSION: The lungs are clear. No pleural effusion or pneumothorax. Cardiac silhouette is borderline enlarged. No acute osseous abnormalities. [facility]-[id number] Procedure Note Interface, Radiology Results Incoming - 09/23/2018 4:02 AM CDT EXAMINATION: XR CHEST 2 VW CLINICAL HISTORY: Chest wall pain COMPARISON: 06/07/2014. IMPRESSION: The lungs are clear. No pleural effusion or pneumothorax. Cardiac silhouette is borderline enlarged. No acute osseous abnormalities. [facility]-[id number] Performing Organization Address City/State/Zipcode Phone Number [facility] [address] [place] [address] * Estimated GFR (09/23/2018 2:32 AM CDT) [facility] Estimated GFR >=90 mL/min/1.73 m2 [facility] Comment: YARSANISM [facility] G1 >=90 Normal or high G2 60-89Mildly decreased [id number] Mildly to moderately decreased [id number] Moderately to severely decreased G4 15-29Severely decreased G5 <15Kidney failure The eGFR was calculated using the Chronic Kidney Disease Epidemiology Collaboration (CKD-EPI) equation. Interpretation is based on recommendations of the National Kidney Foundation-Kidney Disease Outcomes Quality Initiative (NKF-KDOQI) published in 2014. Specimen Plasma specimen Performing Organization Address [facility] [address] PATHOLOGY AND GENOMIC MEDICINE [address] * Troponin (09/23/2018 2:32 AM CDT) [facility] Troponin <0.006 0.000 - 0.040 ng/mL [facility] Comment: [facility] changed methodology effective: HOSPITAL 07/01/2018 at 12:16 pm The new method has a 99th percentile cutoff of 0.040 ng/mL Specimen Plasma specimen Performing Organization Address [facility] [place] [address] PATHOLOGY AND GENOMIC MEDICINE [address] * CBC with platelet and differential (09/23/2018 2:32 AM CDT) [facility] WBC 7.4 4.5 - 11.0 k/uL [facility] RBC 3.94 (L) 4.20 - 5.50 M/uL [facility] HGB 11.7 (L) 14.0 - 18.0 g/dL [facility] HCT 36.7 (L) 37.0 - 47.0 % [facility] MCV 93.1 82.0 - 100.0 fL [facility] MCH 29.7 27.0 - 34.0 pg [facility] MCHC 31.9 31.0 - 37.0 g/dL [facility] RDW - SD 42.0 37.0 - 55.0 fL [facility] MPV 9.0 8.8 - 13.2 fL [facility] Platelet count 271 150 - 400 K/uL [facility] Nucleated RBC 0.00 /100 WBC [facility] Neutrophils 44.1 39.0 - 69.0 % [facility] Lymphocytes 45.3 (H) 25.0 - 45.0 % [facility] Monocytes 6.8 0.0 - 10.0 % [facility] Eosinophils 3.0 0.0 - 5.0 % [facility] Basophils 0.5 0.0 - 1.0 % [facility] Immature 0.3Comment: "Immature 0.0 - 1.0 % [facility] granulocytes granulocytes" (promyelocytes, YARSANISM myelocytes, metamyelocytes) [facility] Specimen Blood Performing Organization Address City/[facility]/Zipcode Phone Number [facility] [address] [address] PATHOLOGY AND GENOMIC MEDICINE [address] [place] [address] [facility] * Comprehensive metabolic panel (09/23/2018 2:32 AM CDT) Sodium 137 135 - 148 mEq/L [facility] Potassium 3.6 3.5 - 5.0 mEq/L [facility] Chloride 101 99 - 109 mEq/L [facility] CO2 23 (L) 24 - 31 mEq/L [facility] Anion gap 13@ANIO 7 - 15 mEq/L [facility] BUN 14 8 - 24 mg/dL [facility] Creatinine 0.70 0.50 - 0.90 mg/dL [facility] Glucose 101 (H) 65 - 99 mg/dL [facility] Calcium 9.3 8.6 - 10.6 mg/dL [facility] Protein 7.2 6.3 - 8.2 g/dL [facility] Albumin 4.1 3.5 - 5.0 g/dL [facility] A/G ratio 1.32 0.70 - 3.80 [facility] Alkaline 65 30 - 115 U/L [facility] phosphatase [facility] AST 21 15 - 46 U/L [facility] ALT 18 10 - 55 U/L [facility] Total bilirubin <0.2 0.2 - 1.2 mg/dL [facility] Specimen Plasma specimen Performing Organization Address City/State/Zipcode Phone Number [facility] [address] [place] [address] PATHOLOGY AND GENOMIC MEDICINE [address] [place] [address] [facility] * ECG 12 lead (09/23/2018 2:27 AM CDT) Ventricular 101 [facility] rate Atrial rate 101 [facility] DE interval 200 [facility] QRSD interval 80 [facility] QT interval 358 [facility] QTC interval 464 [facility] P axis 1 67 [facility] QRS axis 1 17 [facility] T wave axis 45 [facility] EKG impression Sinus tachycardia-Otherwise [facility] MUSE normal ECG-In automated comparison with ECG of 07-JUN-2014 04:11,-T wave inversion no longer evident in Inferior leads-Nonspecific T wave abnormality, improved in Anterolateral leads- Specimen Narrative Performed At Performing Organization Address City/State/Zipcode Phone Number [facility] [address] [place] [address] after 10/08/2017 Insurance Type Payer Benefit Subscriber ID Effective Phone Address Plan / Dates Group HMO [employer] MEDICAID [employer] xxxxxxxxx 2018-P [employer] resent [facility]
--- NOTE | 2018-10-09 15:55 | NUR ---
Patient alert and responsive, received from out patient, BP elevated and Dr. Annette Marin on the case and will f/u with BP. IV line placed to left hand 20 guage, patient denies Chest pains at this time, denies dizziness, no resp distress, call light within reach, Telemetry in place, Echo ordered, labs ordered and will monitor.
[2018-10-09 16:15] VITALS: BP 177/110
[2018-10-09] MEDS ORDERED: HYDROCHLOROTHIA25 MG PO (16:50)
[2018-10-09] MEDS ORDERED: CARDIZEM60 MG PO (16:50)
[2018-10-09] MEDS ORDERED: LISINOPRIL10 MG PO (16:50)
[2018-10-09] MEDS ORDERED: CLONIDINE HCL0.1 MG PO (16:50)
[2018-10-09 17:27] LABS: BASOPHILS % 0.8 % (0.0-1.0); EOSINOPHILS # (AUTO) 0.1 (0.0-0.4); EOSINOPHILS % 1.2 % (0.0-6.0); HEMATOCRIT 35.7 % (34.2-44.1); HEMOGLOBIN 11.3 g/dL (12.0-16.0); LYMPHOCYTES # (AUTO) 1.6 (1.0-3.2); LYMPHOCYTES % 33.1 % (18.0-39.1); MEAN CORPUSCULAR HEMOGLOBIN 29.4 pg (28-32); MEAN CORPUSCULAR HGB CONC 31.7 g/dL (31-35); MEAN CORPUSCULAR VOLUME 92.7 fL (81-99); MONOCYTES # (AUTO) 0.4 (0.2-0.8); MONOCYTES % 7.1 % (4.4-11.3); NEUTROPHILS # (AUTO) 2.8 (2.1-6.9); NEUTROPHILS % 57.6 % (38.7-80.0); PLATELET COUNT 297 x10e3/uL (140-360); RED BLOOD COUNT 3.85 x10e6/uL (3.6-5.1); RED CELL DISTRIBUTION WIDTH 12.3 % (11.7-14.4)
--- NOTE | 2018-10-09 17:34 | NUR ---
Call to [employer]AL[employer]PRESENTATIVE for attending MD and orders to restart all meds. BP elevated and patient c/o chest pains and call to Dr. Bryant's office at this time for orders. Waiting for call back.
[2018-10-09] MEDS ORDERED: CLONIDINE HCL 0.1 MG TAB PO PRN (17:45)
[2018-10-09 17:48] LABS: ALANINE AMINOTRANSFERASE 9 IU/L (0-55); ALBUMIN 3.4 g/dL (3.5-5.0); ALBUMIN/GLOBULIN RATIO 1.1 (0.8-2.0); ALKALINE PHOSPHATASE 54 IU/L (40-150); ANION GAP 10.3 mmol/L (8-16); BLOOD UREA NITROGEN 9 mg/dL (7-26); BUN/CREATININE RATIO 13 (6-25); CALCIUM 9.4 mg/dL (8.4-10.2); CARBON DIOXIDE 27 mmol/L (22-29); CHLORIDE 102 mmol/L (98-107); EST GLOMERULAR FILTRATION RATE > 60 ML/MIN (60-); GLUCOSE 99 mg/dL (74-118); POTASSIUM 4.3 mmol/L (3.5-5.1); SODIUM 135 mmol/L (136-145)
[2018-10-09] MEDS ORDERED: ASPIRIN 81 MG CHEW TAB PO ONE (18:00)
[2018-10-09] MEDS ORDERED: HYDRALAZINE HCL 20 MG/ML VIAL IV PRN (18:00)
[2018-10-09] MEDS ORDERED: NITROGLYCERIN 0.4 MG SUBL SL PRN (18:00)
[2018-10-09 18:07] VITALS: BP 177/110
--- NOTE | 2018-10-09 18:12 | NUR ---
Patient c/o chest pain, described like pressure or something sitting on her chest. Call to Dr. Albert and orders for cardiac enzymes stat, EKG stat, Nitro stat and given at this time, Hydralazine 10mg given IV, will monitor.
[2018-10-09 18:20] LABS: CREATINE KINASE 36 IU/L (29-168)
[2018-10-09 18:30] VITALS: BP 138/72
--- NOTE | 2018-10-09 19:00 | NUR ---
Received patient from day nurse, safety and fall precautions maintained as per hospital protocol.
[2018-10-09 20:49] VITALS: BP 138/89
[2018-10-09 21:00] VITALS: BP 138/89
[2018-10-09] MEDS ORDERED: DILTIAZEM HCL ER 120 MG CAP PO SCH (21:00)
[2018-10-09 23:32] LABS: CREATINE KINASE 33 IU/L (29-168)
[2018-10-10] MEDS: MORPHINE SULFATE INJ 4 MG/ML INJ 1ML IV PRN ×2 (00:12→13:17)
[2018-10-10 01:29] VITALS: BP 101/74
[2018-10-10] MEDS ORDERED: LIPITOR20 MG PO (05:01)
[2018-10-10] MEDS ORDERED: ASPIR 8181 MG PO (05:01)
[2018-10-10 05:17] VITALS: BP 119/78
[2018-10-10 05:48] LABS: BASOPHILS % 0.5 % (0.0-1.0); EOSINOPHILS # (AUTO) 0.1 (0.0-0.4); EOSINOPHILS % 2.1 % (0.0-6.0); HEMATOCRIT 35.1 % (34.2-44.1); HEMOGLOBIN 11.3 g/dL (12.0-16.0); LYMPHOCYTES # (AUTO) 2.5 (1.0-3.2); LYMPHOCYTES % 42.8 % (18.0-39.1); MEAN CORPUSCULAR HEMOGLOBIN 29.8 pg (28-32); MEAN CORPUSCULAR HGB CONC 32.2 g/dL (31-35); MEAN CORPUSCULAR VOLUME 92.6 fL (81-99); MONOCYTES # (AUTO) 0.5 (0.2-0.8); MONOCYTES % 8.2 % (4.4-11.3); NEUTROPHILS # (AUTO) 2.7 (2.1-6.9); NEUTROPHILS % 46.2 % (38.7-80.0); PLATELET COUNT 282 x10e3/uL (140-360); RED BLOOD COUNT 3.79 x10e6/uL (3.6-5.1); RED CELL DISTRIBUTION WIDTH 12.4 % (11.7-14.4)
[2018-10-10 06:20] LABS: BLOOD UREA NITROGEN 10 mg/dL (7-26); BUN/CREATININE RATIO 16 (6-25); CALCIUM 9.4 mg/dL (8.4-10.2); CARBON DIOXIDE 26 mmol/L (22-29); CHLORIDE 100 mmol/L (98-107); CREATINE KINASE 29 IU/L (29-168); CREATININE, SERUM 0.63 mg/dL (0.57-1.11); EST GLOMERULAR FILTRATION RATE > 60 ML/MIN (60-); GLUCOSE 95 mg/dL (74-118); SODIUM 132 mmol/L (136-145)
[2018-10-10 06:43] LABS: FREE T4 (FREE THYROXINE) 0.74 ng/dL (0.8-1.8); THYROID STIMULATING HORMONE 2.196 uIU/mL (0.350-4.940)
[2018-10-10 06:44] LABS: CHOL/HDL RATIO 3.5 (3.0-3.6)
--- NOTE | 2018-10-10 07:33 | NUR ---
patient endorsed to next shift for continuity of care.
[2018-10-10 07:57] VITALS: BP 114/74
[2018-10-10] MEDS ORDERED: LISINOPRIL 20 MG TAB PO SCH (09:00)
[2018-10-10] MEDS ORDERED: HYDROCHLOROTHIAZIDE 25 MG TAB PO SCH (09:00)
--- NOTE | 2018-10-10 09:19 | Consultation ---
DATE OF CONSULTATION: Cardiology Consultation CHIEF COMPLAINT: Elevated blood pressure. HISTORY OF PRESENT ILLNESS: The patient came to our office yesterday complaining of headache and some chest pain. The patient's blood pressure was noted to be 200/140. Arrangements were made for the patient to be admitted for accelerated hypertension. PAST MEDICAL HISTORY: Significant for: 1. Hypertension. 2. Hypercholesterolemia. MEDICATIONS: At home include lisinopril, hydrochlorothiazide, Cardizem, and atorvastatin. SOCIAL HISTORY: The patient does not drink and does not smoke. The patient lives independently. FAMILY HISTORY: There is a known family history of coronary artery disease. PHYSICAL EXAMINATION: VITAL SIGNS: The patient's temperature is 97.3, pulse of 79, and blood pressure 120/78. HEAD, EARS, EYES, NOSE, AND THROAT: The patient's cranium was normocephalic and atraumatic. Extraocular muscles were intact. Sclerae were anicteric. Pupils were equal, round, and reactive to light. There is no pallor or cyanosis of the oral mucosa. There is no erythema or edema of the throat. NECK: Supple. No jugular venous distention. No carotid bruits. CHEST: Demonstrated rhonchi bilaterally. CARDIAC: Demonstrated a normal S1 and S2 with a short 2/6 systolic murmur. ABDOMEN: Demonstrated good bowel sounds. No tenderness. No masses. EXTREMITIES: There was no clubbing, no cyanosis, and no edema. NEUROLOGICAL: The patient was alert and oriented x3. Cranial nerves II through XII were intact. Motor strength was +5/+5 in all limbs. IMAGING: The patient's EKG demonstrated normal sinus rhythm. There was left ventricular hypertrophy by voltage. IMPRESSION: The patient is a 38-year-old with accelerated hypertension. The patient's blood pressure improved dramatically after she was given home medications. An echocardiogram was done, which was normal. I think it is okay for the patient to be discharged at this time. I have reinforced with the patient the importance of taking her blood pressure medications on a daily basis. MD JEWELS ArredondoH/MODL /[id number]
[2018-10-10 12:00] VITALS: BP 158/98
[2018-10-10 12:04] VITALS: BP 114/74
[2018-10-10 16:26] VITALS: BP 114/82
[2018-10-10] MEDS ORDERED: PANTOPRAZOLE SOD 40 MG TABEC PO SCH (16:30)
[2018-10-10] MEDS ORDERED: METOCLOPRAMIDE HCL 10 MG TAB PO SCH (16:30)
--- NOTE | 2018-10-11 04:43 | Discharge Summary ---
ADMISSION DIAGNOSES: 1. Accelerated hypertension. 2. Chest pain. 3. Obesity. DISCHARGE DIAGNOSES: 1. Accelerated hypertension. 2. Chest pain. 3. Obesity. 4. Rule out myocardial infarction. HISTORY: Hypertension. SURGICAL HISTORY: x2. FAMILY HISTORY: Noncontributory. SOCIAL HISTORY: The patient admits to drinking 2 beers daily and says she quit smoking in August of 2018. HOSPITAL COURSE: A 38-year-old female, admitted from the gas fitter apprentice's office for hypertension. Blood pressure was about 170/130 in the office. She was sent to the gas fitter apprentice by her primary care doctor because she began to complain of chest pain 2 days ago. The pain was located on her left chest and radiated to her back. The pain worsens with movement and improves with lying on her side. She admits that she skipped her Cardizem 2 nights before and her lisinopril on the morning of the gas fitter apprentice's appointment. On admission, her blood pressure was 177/110. She was resumed on home medicines plus aspirin and Lipitor. Troponins were negative x2. Echo showed an EF of 60%. EKG showed normal sinus rhythm. The patient was cleared by Cardiology for discharge. She was given a prescription for aspirin, Lipitor, Reglan, and Protonix. The patient is very adamant about going home today as her chest pain has resolved. Vital signs stable. Patient afebrile. She will follow up with Cardiology and primary care in 1 to 2 weeks. The patient understands discharge instructions and agrees to plan. Dictated by Laurence Andrew NP MD STEF Mcfadden/MODL /[id number]
== END 2018-10-10 18:35 | disposition home or self-care (01) ==
LOC: IMCU 15:44
PROVIDERS: ADMIT Internal Medicine; ATTEND Internal Medicine
DX: I10 Essential (primary) hypertension (principal); E66.9 Obesity, unspecified; Z68.36 Body mass index [BMI] 36.0-36.9, adult; E78.00 Pure hypercholesterolemia, unspecified; Z87.891 Personal history of nicotine dependence
CPT/HCPCS: 36415 ×2; 80048; 80053; 80061; 82550 ×2; 82553 ×2; 83036; 84439; 84443; 84484 ×2; 85025 ×2; 93005; 93306; G0378 ×2; J0360; J2270; J8597; S0164